=== PATIENT | female | born 1980 | race Caucasian/White ===

== ENCOUNTER 2020-10-31 11:02 | Inpatient (IN) ==
--- NOTE | 2020-10-29 13:14 | Anesthesiology Consultation ---
Date of Service October 29, 2020 Assessment & Plan (1) Encounter for pre-operative examination: COVID screening: Per assessment on 10/29: Travel screen negative, no known COVID- 19 positive contacts or current COVID-19 related symptoms. Surgeon arranging preop COVID testing (scheduled 10/29; S). Awaiting results. 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 History Surgery Operation Date: 10/31/20 13:00 Proposed Procedures p Section in LD - Harpal Brand MD Height/Weight Height: 5 ft 8 in Weight: 92.533 kg Allergies Allergy/AdvReac Type Severity Reaction Status Date / Time grape Allergy Unknown WHITE Verified 10/29/20 12:03 GRAPE JUICE = HIVES tetracycline Allergy Unknown HIVES Verified 10/29/20 12:03 Medications Home Medications Medication Instructions Recorded Confirmed Last Taken fluticasone propionate [Flonase] 2 spray INTRANASAL QAM 10/29/20 10/29/20 Unknown comb no.42-folic acid 1 tab PO QPM 10/29/20 10/29/20 Unknown [Prena1 Chew] Past Medical History Medical History No known health problems Past Family History Family History Father Family history of diabetes mellitus Past Surgical History Surgical History H/O vaginal surgery HYMENECTOMY History of tooth extraction WISDOM TEETH Social History Smoking Status: Never smoker Do You Dip or Chew Tobacco: No Hx Alcohol Use: Yes Alcohol type: beer, wine and hard liquor alcohol intake frequency: a few times a month Alcohol Intake Frequency Comment: WHEN NOT Hx Substance Use: No
[2020-10-31] MEDS: LACTATED RINGER'S 1,000 ML IV PRN ×2 (11:30→12:31)
[2020-10-31 12:52] LABS: Basophils # (auto) 0.03 K/uL (0-0.2); Basophils % (auto) 0.3 %; Hematocrit (blood only) 36.8 % (37-47); Hemoglobin 12.7 g/dL (12.0-16.0); Immature Granulocytes # (auto) 0.06 K/uL (0.00-0.02); Immature Granulocytes % (auto) 0.6 %; Lymphocytes # (auto) 1.38 K/uL (1.2-3.4); Lymphocytes % (auto) 14.3 %; Mean Corpuscular Hemoglobin 33.2 pg (25-34); Mean Corpuscular Hgb Conc 34.5 g/dL (32-36); Mean Corpuscular Volume 96.3 fL (80-100); Mean Platelet Volume 10.3 fL (7.4-10.4); Monocytes # (auto) 0.79 K/uL (0.11-0.59); Monocytes % (auto) 8.2 %; Neutrophils # (auto) 7.29 K/uL (1.4-6.5); Neutrophils % (auto) 75.6 %; Platelet Count 247 K/uL (130-400); RDW Coefficient of Variation 12.9 % (11.5-14.5); RDW Standard Deviation 44.6 fL (36.4-46.3); Red Blood Count 3.82 M/uL (4.2-5.4); White Blood Count 9.65 K/uL (4.8-10.8)
[2020-10-31] MEDS ORDERED: MoRPHine SULFATE PF 1 MG/ML 10 ML AMP/VIAL ONE (12:56)
[2020-10-31] MEDS ORDERED: ceFAZolin 2000MG 2,000 MG/15 ML SYR IV SCH (13:00)
[2020-10-31] MEDS ORDERED: CITRIC ACID/SODIUM CITRATE 15 ML UDC PO SCH (13:00)
--- NOTE | 2020-10-31 13:07 | History & Physical Report ---
Date of Service October 31, 2020 Assessment & Plan Admission and Anticipated Discharge Date Admission Date: October 31, 2020 History of Present Illness Chief Complaint: Quentin breech at term Primary Care Provider: NO PCP 40 F P1001 at 39.3 weeks seen for primary for breech presentation Allergies Allergy/AdvReac Type Severity Reaction Status Date / Time grape Allergy Intermediate WHITE Verified 10/31/20 12:43 GRAPE JUICE = HIVES tetracycline Allergy Intermediate HIVES Verified 10/31/20 12:43 Home Medications Medication Instructions Recorded Confirmed Type fluticasone propionate [Flonase] 2 spray INTRANASAL QAM 10/29/20 10/31/20 History comb no.42-folic acid 1 tab PO QPM 10/29/20 10/31/20 History [Prena1 Chew] Patient History Medical History No known health problems Surgical History H/O vaginal surgery HYMENECTOMY History of tooth extraction WISDOM TEETH Family History Father Family history of diabetes mellitus Social History Smoking Status: Never smoker Second Hand Exposure: No; Do You Dip or Chew Tobacco: No; Hx Alcohol Use: No Hx Substance Use: No Preferred Language: Uzbek Communication Ability: Effective Supervisor Edging Required: No Beliefs That Will Affect Care: None marital status: Current Living Situation: Spouse current occupational status: employed current occupation: [employer] Other Information That Helps Us Care for You: No Feels Safe at Home: Yes Safety Concerns: Feels Safe At This Time Assistive Devices: Contacts and Glasses OB History x1 Review of Systems All systems reviewed & are unremarkable except as noted in HPI & below Physical Exam Constitutional: WD/WN, vitals as above well developed and comfortable Eyes: PERRL, conjunctivae normal, anicteric sclerae Respiratory: normal respiratory effort, lungs clear to auscultation Auscultation: lungs clear to auscultation bilaterally Cardiovascular: RRR, no murmur, no edema Rate/Rhythm: regular rate Skin: no rashes, warm and dry Neurologic: patellar DTR's 2+ bilat, sensation intact Psychiatric: A+Ox3, euthymic affect Results & Data ([facility]) Vital Signs (Past 12 Hours) Vital Signs Temp Pulse Resp BP 10/31/20 11:46 36.8 C 18 10/31/20 11:12 85 120/73 10/31/20 11:10 36.8 C 18 Laboratory Results 10/31/20 10/31/20 11:30 11:33 WBC 9.65 RBC 3.82 L Hgb 12.7 Hct 36.8 L MCV 96.3 MCH 33.2 MCHC 34.5 RDW Std Deviation 44.6 RDW Coeff of Shun 12.9 Plt Count 247 MPV 10.3 Immature Gran % (Auto) 0.6 Neut % (Auto) 75.6 Lymph % (Auto) 14.3 [place] % (Auto) 8.2 Eos % (Auto) 1.0 Baso % (Auto) 0.3 Neut # (Auto) 7.29 H Lymph # (Auto) 1.38 [place] # (Auto) 0.79 H Eos # (Auto) 0.10 Baso # (Auto) 0.03 Immature Gran # (Auto) 0.06 H Blood Type B Positive Antibody Screen NEGATIVE Monitoring External Monitor FHT Cat 1
[2020-10-31] MEDS ORDERED: LACTATED RINGER'S 500 ML IV PRN (13:17)
[2020-10-31] MEDS ORDERED: MEPERIDINE HCL 25 MG/ML CARP/VIAL IV PRN (13:17)
[2020-10-31] MEDS ORDERED: PROMETHAZINE HCL 12.5 MG in SODIUM CHLORIDE 0.9% 50 ML IV PRN (13:17)
[2020-10-31] MEDS ORDERED: KETOROLAC 30 MG/ML VIAL IV PRN (13:17)
[2020-10-31] MEDS ORDERED: NALOXONE HCL 0.4 MG/1 ML VIAL/CARP IV PRN (13:17)
[2020-10-31] MEDS ORDERED: MoRPHine SULFATE PF 1 MG/ML 10 ML AMP/VIAL INT SPINAL ONE (13:17)
[2020-10-31] MEDS ORDERED: METOCLOPRAMIDE HCL 10 MG in SODIUM CHLORIDE 0.9% 50 ML IV PRN (13:17)
[2020-10-31] MEDS ORDERED: ePHEDrine sulfate 50 MG/ML AMP IV PRN (13:17)
[2020-10-31] MEDS ORDERED: ONDANSETRON INJ 2 MG/ML 2 ML VIAL IV PRN (13:17)
[2020-10-31] MEDS ORDERED: NALOXONE HCL 1 MG in SODIUM CHLORIDE 0.9% 1000ML 1,000 ML IV PRN (13:17)
[2020-10-31] MEDS ORDERED: HYDROmorphone INJ 0.5 MG/0.5 ML SYR IV PRN (13:17)
[2020-10-31] MEDS ORDERED: diphenhydrAMINE 50 MG/ML VIAL IV PRN (13:17)
[2020-10-31] MEDS ORDERED: NALOXONE HCL 0.08 MG in SYRINGE 1.8 ML IV PRN (13:17)
[2020-10-31] MEDS ORDERED: MoRPHine SULFATE 2 MG/ML CARP IV PRN (13:17)
[2020-10-31] MEDS ORDERED: DINOPROSTONE 10 MG INSERT PV ONE (13:27)
--- NOTE | 2020-10-31 13:27 | Labor Progress Brief Note ---
Date of Service October 31, 2020 Subjective Reason For Note: Routine Evaluation and Change In Status Bedside ultrasound confirms vertex presentation. Will cancel and go with induction of labor. Assessment & Plan Admission and Anticipated Discharge Date Admission Date: October 31, 2020 [facility] & Data ([facility]) Vital Signs (Past 12 Hours) Vital Signs Temp Pulse Resp BP 10/31/20 11:46 36.8 C 18 10/31/20 11:12 85 120/73 10/31/20 11:10 36.8 C 18
[2020-10-31] MEDS ORDERED: NO NARCOTICS OR SEDATIVES SCH (13:30)
[2020-10-31] MEDS ORDERED: DC INTRASPINAL MORPHINE SCH (13:30)
[2020-10-31] MEDS ORDERED: SODIUM CHLORIDE 0.9% 1000ML 1,000 ML IV SCH (13:30)
--- NOTE | 2020-10-31 13:36 | Ultrasound Report ---
US OB limited CLINICAL HISTORY: Evaluate position prior to . Confirm breech presentation. COMPARISON STUDY: None. FINDINGS: Transabdominal scanning of the fetus was performed. The fetus is in a cephalic presentation . anatomic survey was not obtained. IMPRESSION: The fetus is in a cephalic presentation. ACT 112: Negative or not required by law. Electronically signed by: Joseluis Kenyon M.D. 10/31/2020 1:34 PM
--- NOTE | 2020-10-31 14:44 | Labor Progress Brief Note ---
Date of Service October 31, 2020 Assessment & Plan Admission and Anticipated Discharge Date Admission Date: October 31, 2020 Physical Exam Genitourinary: Manual OB Exam: + cervical dilation fingertip, + cervical effacement 50% and + station high OB Exam Monitor Tracing: + external FHT monitor used, + external uterine monitor used, + category I and + normal FHT variability Cervidil placed vaginally for ripening Results & Data ([facility]) Vital Signs (Past 12 Hours) Vital Signs Temp Pulse Resp BP 10/31/20 14:31 83 119/70 10/31/20 11:46 36.8 C 18 10/31/20 11:12 85 120/73 10/31/20 11:10 36.8 C 18
[2020-10-31] MEDS ORDERED: OXYTOCIN 30 UNITS/500 ML BAG IV PRN ×2 (14:45→19:04)
[2020-10-31] MEDS ORDERED: TERBUTALINE SULFATE 1 MG/ML VIAL SQ ONE (16:29)
--- NOTE | 2020-10-31 19:04 | Labor Progress Brief Note ---
Date of Service October 31, 2020 Assessment & Plan Admission and Anticipated Discharge Date Admission Date: October 31, 2020 Physical Exam Genitourinary: OB Exam Abdomen: + vertex and + estimated weight (7.5-8 lbs) Manual OB Exam: + cervical dilation 2 cm, + cervical effacement 50% and + station high OB Exam Monitor Tracing: + external FHT monitor used, + external uterine monitor used, + category I and + normal FHT variability cervix softening will start Oxytocin to augment contractions Results & Data ([facility]) Vital Signs (Past 12 Hours) Vital Signs Temp Pulse Resp BP 10/31/20 17:57 37.0 C 120 H 18 117/55 L 10/31/20 14:31 83 119/70 10/31/20 11:46 36.8 C 18 10/31/20 11:12 85 120/73 10/31/20 11:10 36.8 C 18
--- NOTE | 2020-10-31 22:39 | Labor Progress Brief Note ---
Date of Service October 31, 2020 Assessment & Plan Admission and Anticipated Discharge Date Admission Date: October 31, 2020 Physical Exam Genitourinary: Manual OB Exam: + cervical dilation 3 cm, + cervical effacement 60% and + station -2 OB Exam Monitor Tracing: + external FHT monitor used, + external uterine monitor used, + category I and + normal FHT variability Results & Data ([facility]) Vital Signs (Past 12 Hours) Vital Signs Temp Pulse Resp BP 10/31/20 20:54 86 128/69 10/31/20 18:58 36.7 C 18 10/31/20 17:57 37.0 C 120 H 18 117/55 L 10/31/20 14:31 83 119/70 10/31/20 11:46 36.8 C 18 10/31/20 11:12 85 120/73 10/31/20 11:10 36.8 C 18
[2020-11-01] MEDS: LACTATED RINGER'S 1,000 ML IV PRN ×4 (02:21→20:17)
--- NOTE | 2020-11-01 06:38 | Labor Progress Brief Note ---
Date of Service November 01, 2020 Assessment & Plan Admission and Anticipated Discharge Date Admission Date: October 31, 2020 Physical Exam Genitourinary: Manual OB Exam: + cervical dilation 3 cm and 4 cm, + cervical effacement 60% and + station -2 OB Exam Monitor Tracing: + external FHT monitor used, + external uterine monitor used, + category I and + normal FHT variability Results & Data ([facility]) Vital Signs (Past 12 Hours) Vital Signs Temp Pulse Resp BP 11/01/20 06:31 83 115/75 11/01/20 06:02 91 H 117/75 11/01/20 05:31 83 107/68 11/01/20 05:06 81 128/78 11/01/20 04:32 94 H 109/62 11/01/20 04:01 92 H 107/58 L 11/01/20 03:32 83 115/67 11/01/20 03:01 82 110/66 11/01/20 03:00 36.6 C 11/01/20 02:00 80 121/70 10/31/20 23:19 36.9 C 10/31/20 20:54 86 128/69 10/31/20 18:58 36.7 C 18
[2020-11-01] MEDS ORDERED: ePHEDrine sulfate 50 MG/ML AMP ONE (13:49)
[2020-11-01] MEDS ORDERED: fentaNYL citrate 100 MCG/2 ML VIAL ONE (13:49)
[2020-11-01] MEDS ORDERED: SODIUM CHLORIDE 0.9% INJ 10 ML VIAL ONE (13:49)
[2020-11-01] MEDS ORDERED: BUPIVACAINE 0.25% 30 ML VIAL ONE (13:49)
[2020-11-01] MEDS ORDERED: fentaNYL 2MCG/ML ROPIVACAINE 1.25MG/ML 100 ML BAG EPI ONE (13:50)
--- NOTE | 2020-11-01 15:04 | Anesthesiology Consultation ---
Date of Service November 01, 2020 Assessment & Plan Chart Review Chart Review: Acceptable Risk for Surgery and Patient NOT seen in Pre Admission Testing Consults Requested none ASA ASA2 Proposed Anesthesia Anesthesia Type: Labor Epidural and CSE Risk / Benefits Reviewed With: PT / POA / Parent / Guardian, Accepts Plan and Informed Consent Obtained Additional Comments: covid test negative History Surgery Operation Date: 10/31/20 13:00 Proposed Procedures p Section in LD - Harpal Brand MD Height/Weight Height: 5 ft 8 in Weight: 92.533 kg Allergies Allergy/AdvReac Type Severity Reaction Status Date / Time grape Allergy Intermediate WHITE Verified 10/31/20 12:43 GRAPE JUICE = HIVES tetracycline Allergy Intermediate HIVES Verified 10/31/20 12:43 Medications Home Medications Medication Instructions Recorded Confirmed Last Taken fluticasone propionate [Flonase] 2 spray INTRANASAL QAM 10/29/20 10/31/20 10/31/20 comb no.42-folic acid 1 tab PO QPM 10/29/20 10/31/20 10/30/20 [Prena1 Chew] Active Medications Generic Name Dose Route Start Last Admin Trade Name Freq PRN Reason Stop Dose Admin Lactated Ringer's 1,000 mls @ 125 mls/hr 10/31/20 14:45 11/01/20 14:35 Lr IV 11/02/20 14:44 125 mls/hr .Q8H PRN Infusion L&D Protocol Protocol Oxytocin 30 units in 500 mls @ 5 mls/hr 10/31/20 19:04 11/01/20 10:27 Pitocin IV 11/02/20 19:03 0.3 units/hr .Q24H PRN 5 mls/hr Labor Induction/Augmentation Titration Protocol 0.3 UNITS/HR NPO Date Last Intake of Fluids: 11/01/20 Time Last Intake of Fluids: 13:00 Date Last Intake of Solids: 10/31/20 Time Last Intake of Solids: 17:00 Past Medical History Medical History No known health problems Exercise / Class Metabolic Activity II 4-5 Yardwork/Stairs/Walk up hill Past Family History Family History Father Family history of diabetes mellitus Past Surgical History Surgical History H/O vaginal surgery HYMENECTOMY History of tooth extraction WISDOM TEETH Past Anesthesia History No Hx of Anesthesia Complications and No Family Hx of Anesthesia Complications History of PONV No Hx of PONV and No Hx of Motion Sickness Social History Smoking Status: Never smoker Do You Dip or Chew Tobacco: No Hx Alcohol Use: No Alcohol type: beer, wine and hard liquor alcohol intake frequency: a few times a month Alcohol Intake Frequency Comment: WHEN NOT Hx Substance Use: No Physical Exam Vital Signs Last Vital Signs Temp 37.1 C 11/01/20 14:45 Pulse 115 H 11/01/20 14:58 Resp 20 11/01/20 14:30 BP 112/69 11/01/20 14:40 Pulse Ox 99 11/01/20 14:58 Constitutional + obese ENMT Mouth: no dentition abnormality Thyromental Distance: < 3.5 Finger Breadths Mallampati Class: II Neck normal visual inspection and trachea midline; neck extension not limited Respiratory normal respiratory effort Auscultation: lungs clear to auscultation bilaterally Cardiovascular Rate/Rhythm: regular rate and regular rhythm Heart Sounds: no murmur Vessels: no carotid bruit Musculoskeletal Spine: lumbar spine normal to inspection; normal cervical ROM Neurologic moves all extremities Motor/Sensory: no sensory deficit Psychiatric Orientation: alert and oriented x 3 Testing Laboratory Results 10/31/20 11:33 Blood Type B Positive 10/31/20 11:30 Antibody Screen NEGATIVE 10/31/20 11:30
[2020-11-01] MEDS ORDERED: ePHEDrine sulfate 50 MG/ML AMP IV PRN (15:25)
[2020-11-01] MEDS ORDERED: diphenhydrAMINE 50 MG/ML VIAL IV PRN (15:25)
[2020-11-01] MEDS ORDERED: ONDANSETRON INJ 2 MG/ML 2 ML VIAL IV PRN (15:25)
[2020-11-01] MEDS ORDERED: NALOXONE HCL 1 MG in SODIUM CHLORIDE 0.9% 1000ML 1,000 ML IV PRN (15:25)
[2020-11-01] MEDS ORDERED: fentaNYL 2MCG/ML ROPIVACAINE 1.25MG/ML 100 ML BAG EPI PRN (15:25)
[2020-11-01] MEDS ORDERED: NALOXONE HCL 0.4 MG/1 ML VIAL/CARP IV PRN (15:25)
[2020-11-01] MEDS ORDERED: PROMETHAZINE HCL 25 MG in SODIUM CHLORIDE 0.9% 50 ML IV PRN (15:25)
--- NOTE | 2020-11-01 17:05 | Progress Note ---
Date of Service November 01, 2020 Assessment & Plan Admission and Anticipated Discharge Date Admission Date: October 31, 2020 Subjective Pt doing well Epidural in place FHR; CAT1 Ctx; 1-3min VE 4/50/-2 Pitocin AROM; Mild meconium Results & Data ([facility]) Vital Signs (Past 12 Hours) Vital Signs Temp Pulse Resp BP Pulse Ox 11/01/20 16:58 77 99 11/01/20 16:56 101 H 92 11/01/20 16:53 80 112/69 99 11/01/20 16:48 83 99 11/01/20 16:44 75 113/67 11/01/20 16:43 74 99 11/01/20 16:38 78 99 11/01/20 16:34 75 109/66 11/01/20 16:33 73 99 11/01/20 16:30 16 11/01/20 16:28 72 100 11/01/20 16:23 78 100 11/01/20 16:20 70 141/59 H 11/01/20 16:18 67 100 11/01/20 16:13 78 97 11/01/20 16:11 84 89 L 11/01/20 16:08 86 99 11/01/20 16:03 77 111/68 100 11/01/20 16:01 75 109/65 11/01/20 16:00 18 11/01/20 15:59 77 109/70 11/01/20 15:58 82 99 11/01/20 15:57 75 109/66 11/01/20 15:55 82 105/66 11/01/20 15:53 84 106/68 100 11/01/20 15:51 82 104/70 11/01/20 15:49 88 103/67 11/01/20 15:48 75 98 11/01/20 15:47 88 101/69 11/01/20 15:45 88 101/68 93 11/01/20 15:43 92 H 99/67 L 99 11/01/20 15:41 90 98/61 L 11/01/20 15:39 169 H 105/59 L 11/01/20 15:38 88 99 11/01/20 15:37 90 99/56 L 11/01/20 15:35 83 102/60 11/01/20 15:33 95 H 113/63 99 11/01/20 15:31 99 H 106/60 11/01/20 15:30 20 11/01/20 15:29 98 H 111/64 11/01/20 15:28 102 H 99 11/01/20 15:27 121 H 102/59 L 11/01/20 15:25 101 H 103/59 L 11/01/20 15:23 106 H 105/64 99 11/01/20 15:21 115 H 108/65 11/01/20 15:19 96 H 118/76 11/01/20 15:18 98 H 97 11/01/20 15:17 114 H 123/79 11/01/20 15:15 89 117/73 11/01/20 15:13 91 H 98 11/01/20 15:08 105 H 98 11/01/20 15:03 89 100 11/01/20 15:01 88 132/75 11/01/20 14:58 115 H 99 11/01/20 14:53 85 97 11/01/20 14:48 83 98 11/01/20 14:45 37.1 C 11/01/20 14:43 91 H 99 11/01/20 14:40 79 112/69 11/01/20 14:30 20 11/01/20 14:00 20 11/01/20 13:32 113 H 121/77 11/01/20 13:30 18 11/01/20 12:56 96 H 121/69 11/01/20 11:42 75 108/66 11/01/20 11:30 36.8 C 16 11/01/20 11:00 20 11/01/20 10:30 20 11/01/20 10:28 104 H 114/63 11/01/20 10:02 108 H 116/79 11/01/20 10:00 18 11/01/20 09:30 18 11/01/20 09:21 18 11/01/20 09:10 106 H 119/67 11/01/20 09:00 20 11/01/20 08:01 80 118/76 11/01/20 08:00 20 11/01/20 07:36 79 120/73 11/01/20 07:30 20 11/01/20 07:10 93 H 117/71 11/01/20 07:05 36.7 C 20 11/01/20 07:01 36.7 C 11/01/20 06:31 83 115/75 11/01/20 06:02 91 H 117/75 11/01/20 05:31 83 107/68 11/01/20 05:06 81 128/78
[2020-11-01] MEDS ORDERED: OXYTOCIN 30 UNITS/500 ML BAG IV PRN ×2 (17:15→20:38)
[2020-11-01] MEDS ORDERED: NURSING L&D Epidural Breakthrough Pain Update ONE (19:39)
[2020-11-01] MEDS ORDERED: METHYLERGONOVINE MALEATE 0.2 MG/ML AMP ONE (20:24)
[2020-11-01] MEDS ORDERED: miSOPROStoL 100 MCG TAB PR ONE ×2 (20:30→20:38)
[2020-11-01] MEDS ORDERED: SUPERCREAM 0.870% 15 GM JAR EXT PRN (20:38)
[2020-11-01] MEDS ORDERED: bisacodyL 10 MG SUPP PR PRN (20:38)
[2020-11-01] MEDS ORDERED: HYDROCORTISONE ACETATE 25 MG SUPP PR PRN (20:38)
[2020-11-01] MEDS ORDERED: METHYLERGONOVINE MALEATE 0.2 MG/ML AMP IM ONE (20:38)
[2020-11-01] MEDS ORDERED: BENZOCAINE 20% AER SPR 82.5 GM CAN EXT PRN (20:38)
[2020-11-01] MEDS ORDERED: DIPHTHERIA/TETANUS/PERTUSSIS 0.5 ML SYR/VIAL IM ONE (20:38)
[2020-11-01] MEDS: DOCUSATE SODIUM 100 MG CAP PO SCH (22:24)
[2020-11-01] MEDS: IBUPROFEN 600 MG TAB PO PRN (22:24)
[2020-11-01] MEDS: ACETAMINOPHEN 325 MG TAB PO PRN (23:01)
[2020-11-01] MEDS ORDERED: miSOPROStoL 100 MCG TAB ONE (23:52)
[2020-11-02] MEDS: IBUPROFEN 600 MG TAB PO PRN ×5 (01:56→23:15)
[2020-11-02 06:47] LABS: Hematocrit (blood only) 36.8 % (37-47); Hemoglobin 12.2 g/dL (12.0-16.0); Mean Corpuscular Hemoglobin 31.7 pg (25-34); Mean Corpuscular Hgb Conc 33.2 g/dL (32-36); Mean Corpuscular Volume 95.6 fL (80-100); Platelet Count 199 K/uL (130-400); RDW Coefficient of Variation 12.7 % (11.5-14.5); RDW Standard Deviation 44.2 fL (36.4-46.3); Red Blood Count 3.85 M/uL (4.2-5.4); White Blood Count 13.02 K/uL (4.8-10.8)
[2020-11-02] MEDS: PRENATAL VITAMIN 1 TAB PO SCH (08:27)
[2020-11-02] MEDS: FERROUS SULFATE 325 MG TAB PO SCH (08:27)
[2020-11-02] MEDS: DOCUSATE SODIUM 100 MG CAP PO SCH ×2 (08:27→20:54)
--- NOTE | 2020-11-02 08:28 | Anesthesia Procedure Note ---
Date of Service November 02, 2020 Anesthesia Post Epidural Note Vital Signs Vital Signs: Temp Pulse Resp BP Pulse Ox 36.8 C 94 H 20 117/72 100 11/02/20 07:38 11/02/20 07:38 11/02/20 07:38 11/02/20 07:38 11/02/20 07:38 Pain Intensity Abdomen: Pain Intensity: 3 Back: Pain Intensity: 4 Notes Mental Status: alert / awake / arousable Nausea / Vomiting: adequately controlled Pain: adequately controlled Airway Patency, RR, SpO2: stable & adequate BP & HR: stable & adequate Hydration State: stable & adequate Neuraxial Anesthesia: was administered and sensory block is resolving Anesthetic Complications: no major complications apparent Epidural: Removed without complications and With tip intact
[2020-11-02] MEDS: ACETAMINOPHEN 325 MG TAB PO PRN ×2 (13:42→18:53)
--- NOTE | 2020-11-02 15:24 | Obstetrical Progress Note ---
Date of Service November 02, 2020 Subjective Ambulation: ambulating normally Voiding: no voiding problems Passing Gas:: Yes Diet Tolerance:: regular diet Lochia:: Small Doing well abdomen soft tent d/c in AM Results & Data ([facility]) Vital Signs (Past 12 Hours) Vital Signs Temp Pulse Pulse Resp BP Pulse Ox 11/02/20 11:21 37.1 C 80 18 103/69 96 11/02/20 07:38 36.8 C 94 H 20 117/72 100 11/02/20 03:35 36.8 C 81 18 118/75 100
[2020-11-02] MEDS ORDERED: bisacodyL 5 MG TABEC PO SCH (20:00)
[2020-11-03] MEDS: IBUPROFEN 600 MG TAB PO PRN ×2 (05:50→09:59)
[2020-11-03 06:17] LABS: Hematocrit (blood only) 36.8 % (37-47); Hemoglobin 12.7 g/dL (12.0-16.0)
[2020-11-03] MEDS: ACETAMINOPHEN 325 MG TAB PO PRN (06:36)
[2020-11-03] MEDS: DOCUSATE SODIUM 100 MG CAP PO SCH (07:47)
[2020-11-03] MEDS: PRENATAL VITAMIN 1 TAB PO SCH (07:47)
[2020-11-03] MEDS: FERROUS SULFATE 325 MG TAB PO SCH (07:47)
--- NOTE | 2020-11-03 10:12 | Obstetrical Progress Note ---
Date of Service November 03, 2020 Subjective Ambulation: ambulating normally Passing Gas:: Yes Diet Tolerance:: regular diet Lochia:: Small Feeding Type:: breast feeding Physical Exam Constitutional WD/WN, vitals as above comfortable abdomen soft uterus firm no edema neg Eduardo's for d/c Results & Data ([facility]) Vital Signs (Past 12 Hours) Vital Signs Temp Pulse Pulse Resp BP Pulse Ox 11/03/20 07:20 36.6 C 83 18 114/74 98 11/02/20 23:50 36.5 C 94 H 16 96/61 L 98
--- NOTE | 2020-11-04 08:02 | Delivery Summary ---
DATE OF OPERATION: 11/02/2020 The patient delivered a live infant female in left occiput anterior presentation. There was loose nuchal cord, which was easily reduced. Once the infant's head was delivered, the body cord was noted as well. was delivered and placed on mother's abdomen. Delayed cord clamp was performed. Cord blood was obtained and placenta spontaneously delivered. Infant's weight and Apgars in the pediatric record. Placenta appeared grossly normal. Inspection of the perineum showed a second-degree midline laceration and a small periurethral tear. The second-degree midline laceration was repaired with 2-0 Vicryl in layers. The periurethral tear was repaired with 3-0 Vicryl. There was good hemostasis post repair. Rectal exam post repair showed good sphincter tone, no sutures were palpated in the rectum. Estimated blood loss was 450 mL. All instruments were removed from the vagina and accounted for x2 including sponges, needles, and retractors. Baby and mother are doing well in recovery. I attest to the content of the Intraoperative Record and any orders documented therein. Any exception s are noted below.
--- NOTE | 2020-11-11 07:44 | Coding Query ---
CODING QUERY To promote full compliance with coding requirements relating to patient care, provider participation is requested in all cases of medical billing coder uncertainty. Please assist us with the question(s) below: Coding Question(s): The Delivery Summary documents Date of Operation of 11/02/20, however, the EMR shows the date of 11/01/20. Please specify below, to clarify the Date of the Delivery. (x ) 11/01/20 ( ) 11/02/20 ( ) Other, Please Specify Physician's Response(s): Thank you Syeda Owens Principal Diagnosis: "that condition established after study, to be chiefly responsible for occasioning the admission of the patient to the hospital for care." Co-Existing Principal Diagnosis: "when two or more diagnoses equally meet the criteria for principal diagnosis as determined by the circumstances of admission, diagnostic work up, and/or therapy provided, and the Alphabetic Index, Tabular List, or another coding guideline does not provide sequencing direction, any one of the diagnoses may be sequenced first." "When the physician has documented what appears to be a current diagnosis in the body of the record, but has not included the diagnosis in the final diagnostic statement, the physician should be asked whether the diagnosis should be added." (Source [facility] 2 QTR90. p3-4) SOFÍA
== END 2020-11-03 12:42 | disposition home or self-care (01) | DRG 807 ==
LOC: 4S1 11:02 → EDSTATUS 13:00 → 4S2 11-02 00:05